=== PATIENT | male | born 1970 | race Caucasian/White ===

== ENCOUNTER 2022-11-11 12:47 | Emergency (ER) | payer OTHER, SELFPAY ==
[2022-11-11 12:48] VITALS: BP 134/79; PULSE 79; RESP 18; TEMP 36.1; O2SAT 96
--- NOTE | 2022-11-11 12:57 | VDLE_ITS ---
Reason For Study: Pain Procedure LEFT This is a venous duplex using B-mode, color GSV is normal. flow and spectral Doppler. CFV is compressible, spontaneous, phasic, Exam performed portable in ED. competent, and demonstrates normal A preliminary report was called and/or faxed augmentation. to ED. FV is compressible, spontaneous, phasic, competent and demonstrates normal augmentation. POP V is compressible, spontaneous, phasic, competent and demonstrates normal augmentation. T/P Trunk is compressible. PTV is compressible. LT PerV is compressible. VL/Venous Duplex US, Unilateral Interpretation Summary There is no evidence of left lower extremity deep vein thrombosis. Left great s aphenous vein appears patent and compressible segmentally. Ordering Physician: Slava Calvo Referring Physician: [facility] Performed By: Charlotte Tate RVT
[2022-11-11 12:58] VITALS: BMI 31.0
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
[2022-11-11] MEDS: Smz/Tmp Ds Tablet 1 TABLET PO (13:56)
[2022-11-11] MEDS: Cephalexin 250 MG Capsule 500 MG PO (13:56)
== END 2022-11-11 14:03 | disposition home or self-care (01) ==
PROVIDERS: Emergency Provider Emergency Medicine; Visit Provider Emergency Medicine
DX: L03.116 Cellulitis of left lower limb (principal); I10 Essential (primary) hypertension; Z96.652 Presence of left artificial knee joint
CPT/HCPCS: 93971; 99283

== ENCOUNTER 2023-04-23 10:49 | Emergency (ER) | payer OTHER, SELFPAY ==
[2023-04-23 10:50] VITALS: BP 156/112; PULSE 68; RESP 16; TEMP 36.4; O2SAT 99; BMI 31.4
--- NOTE | 2023-04-23 10:53 | EKG12_ITS ---
Test Reason : DIZZY Blood Pressure : / mmHG Vent. Rate : 066 BPM Atrial Rate : 066 BPM P-R Int : 172 ms QRS Dur : 150 ms QT Int : 444 ms P-R-T Axes : 015 010 003 degrees QTc Int : 465 ms Normal sinus rhythm with sinus arrhythmia Right bundle branch block Abnormal ECG Confirmed by ELISABETH LEGGETT, JENNA ([id number]), editor newspaper MJ HYATT ([id number]) on 04/28/2023 11:22:29 AM Referred By: Confirmed By:GABY BARBER MD
--- NOTE | 2023-04-23 10:56 | ED.RN ---
dr lazaro to triage.
[2023-04-23 11:13] LABS: Absolute Lymphocyte Count 2.01 X10^3/uL (0.83-4.51); Absolute Neutrophil Count 5.3 X10^3/uL (2.0-7.7); Basophil# 0.06 X10^3/uL; Basophil% 0.8 % (0-1); Eosinophil# 0.03 X10^3/uL; Eosinophils% 0.4 % (0-5); Hematocrit 41.5 % (40-54); Hemoglobin 14.5 g/dL (13.0-16.5); Lymphocyte # 2.01 X10^3/ul (0.83-4.51); Lymphocyte % 25.3 % (19-41); Mean Corp Hgb Conc 34.9 g/dL (32-36); Mean Corpuscular Hgb 28.5 pg (27.0-32.0); Mean Corpuscular Volume 81.5 fL (80-94); Mean Platelet Vol. 8.3 fl (6.2-12.0); Monocyte# 0.53 X10^3/uL; Monocyte% 6.7 % (0-10); NRBC Flagged by Analyzer 0 % (0-5); Neutrophil # 5.28 X10^3/uL (2.7-7.7); Neutrophil % 66.4 % (47-70); Platelet Count 262 K/mm3 (150-450); RBC Distribution Width CV 12.8 % (11.6-14.6); RBC Distribution Width SD 37.6 fl (35.1-43.9); Red Blood Count 5.09 M/mm3 (4.6-6.2); White Blood Count 7.9 K/mm3 (4.4-11.0)
[2023-04-23 11:25] LABS: Prothrombin Time (Protime)PT. 13.3 SECONDS (11.7-14.9)
[2023-04-23 11:26] LABS: Anion Gap 4 (5-15); BUN 14 mg/dL (7-18); BUN/Creat Ratio 14.9 RATIO (10-20); Calcium,Total 9.1 mg/dL (8.5-10.1); Chloride 106 mmol/L (98-107); Creatinine, Serum 0.94 mg/dL (0.70-1.30); EST Glomerular Filtration Rate 89 mL/min (>60); Est Glom Filt Rate - Afr Amer 108 mL/min (>60); Glucose 101 mg/dL (74-106); Partial Thromboplast Time 27.4 Seconds (24.1-36.2); Potassium 3.9 mmol/L (3.5-5.1); Sodium Level 139 mmol/L (136-145)
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
[2023-04-23 12:15] VITALS: BP 150/107; PULSE 64; RESP 14; O2SAT 99
--- NOTE | 2023-04-23 12:22 | RAD_ITS ---
STUDY: X-RAY CHEST REASON FOR EXAM: Male, 52 years old. Stroke TECHNIQUE: Single AP portable view of the chest. COMPARISON: None. FINDINGS: EKG electrodes are seen. The lungs are clear and expanded. There is no demonstrated pleural abnormality. Normal size heart. Normal mediastinum and jude. Normal visualized pulmonary arteries. There is atherosclerotic tortuosity of the aortic arch and descending thoracic aorta. There are diffuse degenerative changes of the visualized thoracic spine. Normal visualized ribs, clavicles, and shoulders. There is no demonstrated abnormality of the visualized soft tissue structures of the upper abdomen. RAD/Chest 1 View (Portable) IMPRESSION: No acute abnormality seen. Electronically Signed: Omar Qureshi MD at 12:53 EDT ,
[2023-04-23] MEDS: Ondansetron 4 MG/2 ML Vial IV (13:39)
[2023-04-23] MEDS: 0.9% Normal Saline (500mL Bag) 500 ML 1000 ML IV (13:39)
[2023-04-23 15:36] VITALS: BP 136/97; PULSE 66; RESP 17; O2SAT 98
== END 2023-04-23 15:40 | disposition home or self-care (01) ==
PROVIDERS: Emergency Provider Emergency Medicine; Visit Provider Emergency Medicine
DX: E86.0 Dehydration (principal); R11.2 Nausea with vomiting, unspecified; I10 Essential (primary) hypertension; R42 Dizziness and giddiness; R53.1 Weakness; Z79.899 Other long term (current) drug therapy
CPT/HCPCS: 71045; 80048; 85025; 85610; 85730; 93005; 96361; 96374; 99284; J2405